=== PATIENT | female | born 1960 | race Caucasian/White ===

== ENCOUNTER 2016-11-04 13:17 | Emergency (ER) | payer OTHER ==
[~2016-11-04 13:17] MED LIST: AMLODIPINE BESY10 MG PO; CYCLOBENZAPRINE10 MG PO; DIAZEPAM10 MG PO; GABAPENTIN300 MG PO; LISINOPRIL10 MG PO; NORCO1 TAB PO
--- NOTE | 2016-11-04 13:54 | ED CLINICAL REPORT ---
Clinical Report - Physicians/Mid Levels [facility] [address] [place] [address] 11/04/2016 13:18 Patient: CAROLE CUNNINGHAM Time Seen: 13:48. Arrived- By private vehicle. Historian- patient. HISTORY OF PRESENT ILLNESS Chief Complaint: DENTAL PAIN. This started 2 days ago and is still present. Pain described as severe. No sore throat or mouth sores. She has had toothache. Similar symptoms previously: Recent medical care: The patient was seen recently in a clinic. REVIEW OF SYSTEMS No fever, difficulty breathing, nausea, diarrhea or headache. No skin rash, enlarged lymph nodes or vomiting. PAST HISTORY See nurses notes. Hypertension. Pt did not disclose her pain meds: 120 10/325 vicodin per month w/ Dr Benitez. SOCIAL HISTORY Smoker - current status unknown. History of drug use: marijuana. No alcohol use. ADDITIONAL NOTES The nursing notes have been reviewed. PHYSICAL EXAM Vital Signs: 11/04/2016 14:01 BP: 130/90. HR: 82. RR: 17. O2 saturation: 95%. Pain level now: 8/10. Have been reviewed and appear to be correct. Appearance: Alert. No acute distress. Head: Normal external inspection. Eyes: Pupils equal, round and reactive to light. Conjunctivae and eyelids normal. ENT: Moderate dental tenderness of a single tooth with gingival tenderness and swelling (upper left incisors). Nose normal. Pharynx normal. Lips normal. No trismus present. Uvula midline. Neck: Trachea midline. No adenopathy. Neck supple. No meningeal signs. CVS: Normal heart rate and rhythm. Respiratory: No respiratory distress. Skin: Normal skin color. No rash. Normal skin turgor. Neuro: Oriented X 3. PROGRESS AND PROCEDURES Course of Care: Dental resources discussed and resource sheet given I reminded pt that she needs to disclose her chronic narcotics when receiving care. Patient is stable. Patient counseled in person regarding the patient's condition and need for follow-up. Disposition: Discharged. CLINICAL IMPRESSION Periapical dental abscess. No sinus tract. INSTRUCTIONS Drink plenty of fluids. Follow a soft diet. (Call dentist LUZ ELENA. Let them know you are on antibiotics already [facility] dental: [phone]). Warnings: GENERAL WARNINGS: Return or contact your physician immediately if your condition worsens or changes unexpectedly, if not improving as expected, or if other problems arise. Your Current Medications: CONTINUE TAKING THE FOLLOWING MEDICATIONS: AmLODIPine Besylate Oral. Lisinopril Oral. Prescription Medications: Hydrocodone/APAP 10mg / 325mg: take 1 orally every day as needed. (dispense 1 tablet for bed tonight) Penicillin V 500 mg: take 1 tab orally every 8 hours for 10 days. Dispense thirty (30). No refills. Follow-up: Follow up with a specialist. Call for the next available appointment. Understanding of the discharge instructions verbalized by patient. (Electronically signed by Maura Le A.R.N.P. 11/04/2016 14:33)
--- NOTE | 2016-11-04 13:54 | ED NURSING NOTES ---
Clinical Report - Nurses [facility] [address] [place] [address] 11/04/2016 13:18 Patient: CAROLE CUNNINGHAM TRIAGE Triage time 13:Nov 04 2016. Chief Complaint: LEFT UPPER TOOTHACHE and (pt reports decayed tooth left upper , states "it's barely hanging in there and draining pus" x 2 days). Alert. No acute distress. SEPSIS SCREEN: Sepsis Screen: negative. Infection suspected/documented. --13:34 Naomi Juares R.N. 13:27 11/04/16. BP: 133/98 taken on the left arm. HR: 86. RR: 17. O2 saturation: 96%. Temp: 98.1 F. Pain level now: 01/24. --13:34 Naomi Juares R.N. Weight: 44.4 kg. Height/Length: 60 inches. BMI: 19.1. --13:30 Naomi Juares R.N. Medications Lisinopril Oral. --13:29 Naomi Juares R.N. AmLODIPine Besylate Oral. --13:29 Naomi Juares R.N. Medication/allergy information source: the patient. --13:34 Naomi Juares R.N. Allergies Oxycodone. --13:30 Naomi Juares R.N. The following entry was struck by Naomi Juares R.N., 13:30 (11/04/16) Reason - other(pt changed). <<STRICKEN ENTRY-- None. --13:29 Naomi Juares R.N. --END STRIKE>>. History Arrived by private vehicle. Historian: patient. Accompanied by family. Onset. (2 days ago). She has no dental appointment scheduled. She has had a toothache. 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 PAST MEDICAL HX: Immunizations: up-to-date. The patient is post-menopausal. SOCIAL HX: Smoker- current status unknown. History of drug use: marijuana. No alcohol use. No infectious disease exposure. ABUSE ASSESSMENT: No report of abuse. SELF HARM ASSESSMENT: A self harm assessment was performed. The patient answered "no" to the question "Do you have thoughts of harming or killing yourself?". FALL RISK ASSESSMENT: Fall risk assessment completed. No fall risk identified. NUTRITIONAL RISK ASSESSMENT: The nutritional risk assessment revealed no deficiencies. FUNCTIONAL ASSESSMENT: Functional assessment: no impairments noted. LEARNING NEEDS ASSESSMENT: The learning needs assessment revealed no barriers. SKIN INTEGRITY ASSESSMENT: Skin integrity risk assessment completed. No skin integrity risk identified. --13:34 Naomi Juares R.N. PROBLEMS: Weakness. Paresthesia. Lung Disease. Lung Cancer. Shoulder Injury. Sciatica. Hypertension. --13:30 Naomi Juares R.N. ADDITIONAL SURGERIES: Appendectomy. Back Surgery. Kidney stent. Lobectomy of lung. Lung Surgery. --13:30 Naomi Juares R.N. Interventions ID band on patient. To treatment room. --13:34 Naomi Juares R.N. PHYSICAL ASSESSMENT Ambulatory to room. GENERAL / NEURO / PSYCH: Alert. Oriented X 4. Appears in pain. HEENT: Pupils equal, round and reactive to light. Dental tenderness. Dental decay. RESPIRATORY: Respirations not labored. SKIN: Skin is warm and dry. Normal skin turgor. --13:35 Naomi Juares R.N. NURSING PROGRESS NOTES Reassurance given. Patient identifiers checked. Call light placed in reach. Side rails up x 1. Bed placed in lowest position. Brakes of bed on. Patient ready for evaluation- chart flagged. Patient waiting for evaluation. --13:35 Naomi Juares R.N. DISPOSITION / DISCHARGE Condition at departure: unchanged. No learning barriers present. Discharge instructions provided and reviewed with the patient. Reviewed medication(s) side effects, dosing and course information. Prescription(s) given to the patient. Reviewed soft diet and need for increased fluid intake (soft diet and push fluids per dc inst). Follow up contact number [facility]. Patient verbalized understanding. Written instructions provided in Cameroonian. The patient was discharged by the nurse practitioner. She was discharged home and accompanied by family. She left the Emergency Department ambulatory and via private vehicle. Patient driving. --14:03 Naomi Juraes R.N. 14:01 11/04/16. BP: 130/90. HR: 82. RR: 17. O2 saturation: 95%. Pain level now: 01/24. --14:03 Naomi Juares R.N. Locked/Released at 11/04/2016 14:04 by Naomi Juares R.N.
--- NOTE | 2016-11-04 13:54 | ED NURSING NOTES ---
Clinical Report - Nurses [facility] [address] [place] [address] 11/04/2016 13:18 Patient: CAROLE CUNNINGHAM TRIAGE Triage time 13:Nov 04 2016. Chief Complaint: LEFT UPPER TOOTHACHE and (pt reports decayed tooth left upper , states "it's barely hanging in there and draining pus" x 2 days). Alert. No acute distress. SEPSIS SCREEN: Sepsis Screen: negative. Infection suspected/documented. --13:34 Naomi Juares R.N. 13:27 11/04/16. BP: 133/98 taken on the left arm. HR: 86. RR: 17. O2 saturation: 96%. Temp: 98.1 F. Pain level now: 01/24. --13:34 Naomi Juares R.N. Weight: 44.4 kg. Height/Length: 60 inches. BMI: 19.1. --13:30 Naomi Juares R.N. Medications Lisinopril Oral. --13:29 Naomi Juares R.N. AmLODIPine Besylate Oral. --13:29 Naomi Juares R.N. Medication/allergy information source: the patient. --13:34 Naomi Juares R.N. Allergies Oxycodone. --13:30 Naomi Juares R.N. The following entry was struck by Naomi Juares R.N., 13:30 (11/04/16) Reason - other(pt changed). <<STRICKEN ENTRY-- None. --13:29 Naomi Juares R.N. --END STRIKE>>. History Arrived by private vehicle. Historian: patient. Accompanied by family. Onset. (2 days ago). She has no dental appointment scheduled. She has had a toothache. 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 PAST MEDICAL HX: Immunizations: up-to-date. The patient is post-menopausal. SOCIAL HX: Smoker- current status unknown. History of drug use: marijuana. No alcohol use. No infectious disease exposure. ABUSE ASSESSMENT: No report of abuse. SELF HARM ASSESSMENT: A self harm assessment was performed. The patient answered "no" to the question "Do you have thoughts of harming or killing yourself?". FALL RISK ASSESSMENT: Fall risk assessment completed. No fall risk identified. NUTRITIONAL RISK ASSESSMENT: The nutritional risk assessment revealed no deficiencies. FUNCTIONAL ASSESSMENT: Functional assessment: no impairments noted. LEARNING NEEDS ASSESSMENT: The learning needs assessment revealed no barriers. SKIN INTEGRITY ASSESSMENT: Skin integrity risk assessment completed. No skin integrity risk identified. --13:34 Naomi Juares R.N. PROBLEMS: Weakness. Paresthesia. Lung Disease. Lung Cancer. Shoulder Injury. Sciatica. Hypertension. --13:30 Naomi Juares R.N. ADDITIONAL SURGERIES: Appendectomy. Back Surgery. Kidney stent. Lobectomy of lung. Lung Surgery. --13:30 Naomi Juares R.N. Interventions ID band on patient. To treatment room. --13:34 Naomi Juares R.N. PHYSICAL ASSESSMENT Ambulatory to room. GENERAL / NEURO / PSYCH: Alert. Oriented X 4. Appears in pain. HEENT: Pupils equal, round and reactive to light. Dental tenderness. Dental decay. RESPIRATORY: Respirations not labored. SKIN: Skin is warm and dry. Normal skin turgor. --13:35 Naomi Juares R.N. NURSING PROGRESS NOTES Reassurance given. Patient identifiers checked. Call light placed in reach. Side rails up x 1. Bed placed in lowest position. Brakes of bed on. Patient ready for evaluation- chart flagged. Patient waiting for evaluation. --13:35 Naomi Juares R.N. DISPOSITION / DISCHARGE Condition at departure: unchanged. No learning barriers present. Discharge instructions provided and reviewed with the patient. Reviewed medication(s) side effects, dosing and course information. Prescription(s) given to the patient. Reviewed soft diet and need for increased fluid intake (soft diet and push fluids per dc inst). Follow up contact number [facility]. Patient verbalized understanding. Written instructions provided in Macanese. The patient was discharged by the nurse practitioner. She was discharged home and accompanied by family. She left the Emergency Department ambulatory and via private vehicle. Patient driving. --14:03 Naomi Juares R.N. 14:01 11/04/16. BP: 130/90. HR: 82. RR: 17. O2 saturation: 95%. Pain level now: 01/24. --14:03 Naomi Juares R.N. Locked/Released at 11/04/2016 14:04 by Naomi Juares R.N.
--- NOTE | 2016-11-04 13:54 | ED CLINICAL REPORT ---
Clinical Report - Physicians/Mid Levels [facility] [address] [place] [address] 11/04/2016 13:18 Patient: CAROLE CUNNINGHAM Time Seen: 13:48. Arrived- By private vehicle. Historian- patient. HISTORY OF PRESENT ILLNESS Chief Complaint: DENTAL PAIN. This started 2 days ago and is still present. Pain described as severe. No sore throat or mouth sores. She has had toothache. Similar symptoms previously: Recent medical care: The patient was seen recently in a clinic. REVIEW OF SYSTEMS No fever, difficulty breathing, nausea, diarrhea or headache. No skin rash, enlarged lymph nodes or vomiting. PAST HISTORY See nurses notes. Hypertension. Pt did not disclose her pain meds: 120 10/325 vicodin per month w/ Dr Benitez. SOCIAL HISTORY Smoker - current status unknown. History of drug use: marijuana. No alcohol use. ADDITIONAL NOTES The nursing notes have been reviewed. PHYSICAL EXAM Vital Signs: 11/04/2016 14:01 BP: 130/90. HR: 82. RR: 17. O2 saturation: 95%. Pain level now: 8/10. Have been reviewed and appear to be correct. Appearance: Alert. No acute distress. Head: Normal external inspection. Eyes: Pupils equal, round and reactive to light. Conjunctivae and eyelids normal. ENT: Moderate dental tenderness of a single tooth with gingival tenderness and swelling (upper left incisors). Nose normal. Pharynx normal. Lips normal. No trismus present. Uvula midline. Neck: Trachea midline. No adenopathy. Neck supple. No meningeal signs. CVS: Normal heart rate and rhythm. Respiratory: No respiratory distress. Skin: Normal skin color. No rash. Normal skin turgor. Neuro: Oriented X 3. PROGRESS AND PROCEDURES Course of Care: Dental resources discussed and resource sheet given I reminded pt that she needs to disclose her chronic narcotics when receiving care. Patient is stable. Patient counseled in person regarding the patient's condition and need for follow-up. Disposition: Discharged. CLINICAL IMPRESSION Periapical dental abscess. No sinus tract. INSTRUCTIONS Drink plenty of fluids. Follow a soft diet. (Call dentist LUZ ELENA. Let them know you are on antibiotics already [facility] dental: [phone]). Warnings: GENERAL WARNINGS: Return or contact your physician immediately if your condition worsens or changes unexpectedly, if not improving as expected, or if other problems arise. Your Current Medications: CONTINUE TAKING THE FOLLOWING MEDICATIONS: AmLODIPine Besylate Oral. Lisinopril Oral. Prescription Medications: Hydrocodone/APAP 10mg / 325mg: take 1 orally every day as needed. (dispense 1 tablet for bed tonight) Penicillin V 500 mg: take 1 tab orally every 8 hours for 10 days. Dispense thirty (30). No refills. Follow-up: Follow up with a specialist. Call for the next available appointment. Understanding of the discharge instructions verbalized by patient. (Electronically signed by Maura Le A.R.N.P. 11/04/2016 14:33)
--- NOTE | 2016-11-04 14:33 | ED DISCHARGE INSTRUCTIONS ---
Patient: CAROLE CUNNINGHAM General Instructions [facility] VisitID: [id number] [address] [place] [address] 56y, F Registration Date/Time: 11/04/2016 Periapical dental abscess. No sinus tract. INSTRUCTIONS Drink plenty of fluids. Follow a soft diet. (Call dentist LUZ ELENA. Let them know you are on antibiotics already [facility] dental: [phone]). Warnings: GENERAL WARNINGS: Return or contact your physician immediately if your condition worsens or changes unexpectedly, if not improving as expected, or if other problems arise. Your Current Medications: CONTINUE TAKING THE FOLLOWING MEDICATIONS: AmLODIPine Besylate Oral. Lisinopril Oral. Prescription Medications: Hydrocodone/APAP 10mg / 325mg: take 1 orally every day as needed. (dispense 1 tablet for bed tonight) Penicillin V 500 mg: take 1 tab orally every 8 hours for 10 days. Dispense thirty (30). No refills. Follow-up: Follow up with a specialist. Call for the next available appointment. Understanding of the discharge instructions verbalized by patient. ADDITIONAL INFORMATION Dental Abscess A dental abscess is an infection of the tooth socket. It often starts with a crack or cavity in the tooth. A pocket of pus forms between the tooth and the bone. The infection causes pain and swelling of the gum, cheek or jaw. The pain is often made worse by drinking hot or cold fluids, or biting on hard foods. Pain may be felt in the facial sinus or in the ear. A severe infection can interfere with swallowing and breathing. In the emergency department or clinic, you will be started on an antibiotic. However, final treatment requires drainage of the pus. This can be done by removing the tooth or performing a root canal. A root canal is done by an oral surgeon and involves drilling an opening in the tooth to drain the pus. After the infection has healed, a crown is placed over the tooth. Home care The following guidelines will help you care for your abscess at home: Avoid hot and cold foods and liquids since your tooth may be sensitive to temperature changes. If your tooth is chipped or cracked, or if there is a large open cavity, applyoil of cloves(available nkyl-fop-haormgn in drug stores) directly to the tooth to reduce pain. Some pharmacies carry an bydh-mfn-fpguljo "toothache kit". This contains oil of cloves and a paste, which can be applied over the exposed tooth to decrease sensitivity. Apply an ice pack (ice cubes in a plastic bag, wrapped in a towel) over the injured area for 20 minutes every 12 hours the first day for pain relief. Continue this 34 times a day until the pain and swelling goes away. You may use acetaminophen or ibuprofen to control pain, unless another medicine was prescribed. If you have chronic liver or kidney disease or ever had a stomach ulcer or GI bleeding, talk with your doctor before using these medicines. An antibiotic will be prescribed. Take it as directed until completed, even if you are feeling better sooner. Follow-up care Follow up as directed with a dentist or oral surgeon. Even though your pain may improve with the treatment given today, only a dentist or oral surgeon can provide full treatment for this problem. When to seek medical care Get prompt medical attention or contact your doctor if any of the following occur: Your face or eyelid becomes swollen or red Pain worsens or spreads to the neck Fever over 100.4F (38.0C) Unusual drowsiness; headache or stiff neck; weakness, or fainting Pus drains from the gum or tooth Difficulty talking, swallowing or breathing Unable to open your mouth wide You have been given the following additional information: Tooth Abscess (Electronically signed by Maura Le A.R.N.P. 11/04/2016 14:33)
--- NOTE | 2016-11-04 14:33 | ED MED RECONCILIATION SUMMARY ---
Patient: CAROLE CUNNINGHAM Medication Reconciliation Report [facility] VisitID: [id number] [address] [place] [address] 56y, F Registration Date/Time: 11/04/2016 Weight: 44.4 kg Height/Length: 60 in. BMI: 19.1 ALLERGIES: Oxycodone The patient's Home Medications are listed below: CONTINUE TAKING THE FOLLOWING MEDICATIONS: AmLODIPine Besylate Oral Lisinopril Oral The source(s) of the original Home Medication information: patient The following Medications were given to the patient in the Emergency Department: None. The following Medications were prescribed to the patient: Hydrocodone/APAP 10mg / 325mg: take 1 orally every day as needed.(dispense 1 tablet for bed tonight) -- Maura Le A.R.N.P. Penicillin V 500 mg: take 1 tab orally every 8 hours for 10 days. Dispense thirty (30). No refills. -- Maura Le A.R.N.P.
--- NOTE | 2016-11-04 14:33 | ED DISCHARGE INSTRUCTIONS ---
Patient: CAROLE CUNNINGHAM General Instructions [facility] VisitID: [id number] [address] [place] [address] 56y, F Registration Date/Time: 11/04/2016 Periapical dental abscess. No sinus tract. INSTRUCTIONS Drink plenty of fluids. Follow a soft diet. (Call dentist LUZ ELENA. Let them know you are on antibiotics already [facility] dental: [phone]). Warnings: GENERAL WARNINGS: Return or contact your physician immediately if your condition worsens or changes unexpectedly, if not improving as expected, or if other problems arise. Your Current Medications: CONTINUE TAKING THE FOLLOWING MEDICATIONS: AmLODIPine Besylate Oral. Lisinopril Oral. Prescription Medications: Hydrocodone/APAP 10mg / 325mg: take 1 orally every day as needed. (dispense 1 tablet for bed tonight) Penicillin V 500 mg: take 1 tab orally every 8 hours for 10 days. Dispense thirty (30). No refills. Follow-up: Follow up with a specialist. Call for the next available appointment. Understanding of the discharge instructions verbalized by patient. ADDITIONAL INFORMATION Dental Abscess A dental abscess is an infection of the tooth socket. It often starts with a crack or cavity in the tooth. A pocket of pus forms between the tooth and the bone. The infection causes pain and swelling of the gum, cheek or jaw. The pain is often made worse by drinking hot or cold fluids, or biting on hard foods. Pain may be felt in the facial sinus or in the ear. A severe infection can interfere with swallowing and breathing. In the emergency department or clinic, you will be started on an antibiotic. However, final treatment requires drainage of the pus. This can be done by removing the tooth or performing a root canal. A root canal is done by an oral surgeon and involves drilling an opening in the tooth to drain the pus. After the infection has healed, a crown is placed over the tooth. Home care The following guidelines will help you care for your abscess at home: Avoid hot and cold foods and liquids since your tooth may be sensitive to temperature changes. If your tooth is chipped or cracked, or if there is a large open cavity, applyoil of cloves(available kjjm-tsp-aeijmfb in drug stores) directly to the tooth to reduce pain. Some pharmacies carry an digl-jnb-qdbeksz "toothache kit". This contains oil of cloves and a paste, which can be applied over the exposed tooth to decrease sensitivity. Apply an ice pack (ice cubes in a plastic bag, wrapped in a towel) over the injured area for 20 minutes every 12 hours the first day for pain relief. Continue this 34 times a day until the pain and swelling goes away. You may use acetaminophen or ibuprofen to control pain, unless another medicine was prescribed. If you have chronic liver or kidney disease or ever had a stomach ulcer or GI bleeding, talk with your doctor before using these medicines. An antibiotic will be prescribed. Take it as directed until completed, even if you are feeling better sooner. Follow-up care Follow up as directed with a dentist or oral surgeon. Even though your pain may improve with the treatment given today, only a dentist or oral surgeon can provide full treatment for this problem. When to seek medical care Get prompt medical attention or contact your doctor if any of the following occur: Your face or eyelid becomes swollen or red Pain worsens or spreads to the neck Fever over 100.4F (38.0C) Unusual drowsiness; headache or stiff neck; weakness, or fainting Pus drains from the gum or tooth Difficulty talking, swallowing or breathing Unable to open your mouth wide You have been given the following additional information: Tooth Abscess (Electronically signed by Maura Le A.R.N.P. 11/04/2016 14:33)
--- NOTE | 2016-11-04 14:33 | ED MAR SUMMARY ---
..... Medication Administration Record [facility] [address] [place], [place] [id number] Patient: HUSAM CUNNINGHAMYCFam Meek Visit ID: [id number] 56y, F Weight: 44.4 kg Height/Length: 60 in BMI: 19.1 ALLERGIES: Oxycodone
--- NOTE | 2016-11-04 14:33 | ED MAR SUMMARY ---
..... Medication Administration Record [facility] [address] [place], [place] [id number] Patient: HUSAM CUNNINGHAMYCFam Meek Visit ID: [id number] 56y, F Weight: 44.4 kg Height/Length: 60 in BMI: 19.1 ALLERGIES: Oxycodone
--- NOTE | 2016-11-04 14:33 | ED MED RECONCILIATION SUMMARY ---
Patient: CAROLE CUNNINGHAM Medication Reconciliation Report VisitID: [id number] [address] [place] [address] 56y, F Registration Date/Time: 11/04/2016 Weight: 44.4 kg Height/Length: 60 in. BMI: 19.1 ALLERGIES: Oxycodone The patient's Home Medications are listed below: CONTINUE TAKING THE FOLLOWING MEDICATIONS: AmLODIPine Besylate Oral Lisinopril Oral The source(s) of the original Home Medication information: patient The following Medications were given to the patient in the Emergency Department: None. The following Medications were prescribed to the patient: Hydrocodone/APAP 10mg / 325mg: take 1 orally every day as needed.(dispense 1 tablet for bed tonight) -- Maura Le A.R.N.P. Penicillin V 500 mg: take 1 tab orally every 8 hours for 10 days. Dispense thirty (30). No refills. -- Maura Le A.R.N.P.
== END 2016-11-04 14:03 | disposition home or self-care (01) ==
LOC: ED SRH 13:17
DX: K04.7 Periapical abscess without sinus (principal); I10 Essential (primary) hypertension; Z79.899 Other long term (current) drug therapy; Z88.5 Allergy status to narcotic agent

== ENCOUNTER 2016-12-12 17:55 | Emergency (ER) | payer OTHER ==
--- NOTE | 2016-12-12 18:44 | ED CLINICAL REPORT ---
Clinical Report - Physicians/Mid Levels [facility] [address] [place] [address] 12/12/2016 17:57 Patient: CAROLE CUNNINGHAM Time Seen: 18:53 Fortunato 2016. Arrived- By private vehicle. Historian- patient. HISTORY OF PRESENT ILLNESS Chief Complaint: BACK PAIN. Onset- years and it is still present. It is described as being in the area of the lower lumbar spine. The quality is noted to be "pain" and similar to prior episodes. No bowel dysfunction or sensory loss. Additional history - Pt presents between pain specialist, awaiting for appointment on 31 of DECEMBER at [facility]. Patient presents today with the same pain she has had for many years. Out of medications today. Has follow-up for her chronic pain. Patient denies an injury. REVIEW OF SYSTEMS No fever, chills, difficulty with urination, hematuria or headache. No cough, abdominal pain, vomiting or diarrhea. All systems otherwise negative, except as recorded above. PAST HISTORY The patient has had prior back pain. Problems: Dental Abscess. Weakness. Paresthesia. Lung Disease. Lung Cancer. Shoulder Injury. Sciatica. Hypertension. Additional Surgeries: Appendectomy. Back Surgery. Kidney stent. Lobectomy of lung. Lung Surgery. Neck Surgery. Medications: Hydrocodone-Acetaminophen Oral. Gabapentin Oral. AmLODIPine Besylate Oral. Lisinopril Oral. Allergies: Oxycodone. SOCIAL HISTORY No drug use. Not an IV drug user. ADDITIONAL NOTES The nursing notes have been reviewed. PHYSICAL EXAM Vital Signs: 12/12/2016 18:17 BP: 119/89. HR: 100. RR: 24. O2 saturation: 97%. Temp: 98.1 F. Appearance: Alert. No apparent distress. HEENT: Normal external inspection. Neck: Normal inspection. Neck nontender. CVS: Heart sounds normal. Pulses normal. No decreased pulses. Respiratory: No respiratory distress. Abdomen: No visible injury. Soft. Back: Normal inspection. Vertebral point tenderness. Soft tissue tenderness. Skin: Skin warm. Normal skin color. Neuro: Oriented X 3. No sensory deficit. Straight leg raising: negative on the right and negative on the left. Reflex exam: right patellar 2+. PROGRESS AND PROCEDURES Course of Care: There are no risks for spinal epidural abscess or hematoma as patient is without any risk factors such as IVDA or evidence of active infection, no midline tenderness to percussion. Hence I do not feel emergent imaging with an MRI is indicated. However I did discuss with the patient that if these symptoms develop, or if the pain does not resolve an MRI may need to be done outpatient, or in the ED if symptoms worsen acutely or new onset of the above mentioned symptoms develop. Patient is stable. Symptoms better. Patient/family counseled. Disposition: Discharged. Condition: good. CLINICAL IMPRESSION Chronic lumbar back pain. INSTRUCTIONS (PLEASE FOLLOW UP WITH DR. VELA or the clinic about further medications). Prescription Medications: Hydrocodone/APAP 10mg / 325mg: take 1 orally every 12 hours as needed for pain. Dispense ten (10). No refill. (Electronically signed by Dayan Dorado P.A.-C 12/12/2016 18:59) Addenda for CAROLE CUNNINGHAM VisitID: [id number] Date: 12/12/2016 12/13/2016 10:23 Pt at [facility] pharmacy on [facility], were questioning whether to fill it since she just obtained 30 doses on the . Pt was honest with our PA about it, and only 10 tablets were prescribed so she can make it until the , her appt. Ok'd and also ok'd to pay martínez for it this time. Consulted with pt's nurse and Dr. Gutierrez. (Electronically signed by Kristi Patel R.N. - 12/13/2016 10:23) 01/02/2017 7:44 locked for processing (Electronically signed by Daksha Hannon R.N. - 01/02/2017 7:44)
--- NOTE | 2016-12-12 18:44 | ED NURSING NOTES ---
Clinical Report - Nurses [facility] [address] [place] [address] 12/12/2016 17:57 Patient: CAROLE CUNNINGHAM TRIAGE Triage time 1810. Acuity: LEVEL 5. Chief Complaint: (med refill opiates). Alert. No acute distress. (rapid speech). --18:24 Radha Avila 18:17 12/12/16. BP: 119/89. HR: 100. RR: 24. O2 saturation: 97%. Temp: 98.1 F. Pain level now 7/10. --18:24 Radha Avila. Weight: 41.7 kg. Height/Length: 60 inches. BMI: 18. --18:17 Radha Avila. Medications AmLODIPine Besylate Oral. Lisinopril Oral. --18:21 Radha Avila Gabapentin Oral. --18:21 Radha Avila Hydrocodone-Acetaminophen Oral. --18:21 Radha Avila. Medication/allergy information source: the patient. --18:24 Radha Avila. Allergies Oxycodone. --18:21 Radha Avila. History Arrived by private vehicle. Historian: patient. Unaccompanied. ( Pt here for more hydrocodone, sts he has been going to for pain meds, sts she doesn't like them and is switching to Prov, she sts she told her Provider that and so they only gave her 30 pills versus her 120 (to last 30 days), pt sts she has appt December 28 and is out of meds until then). 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 SOCIAL HX: Smoker- current status unknown (cigarette). History of drug use: marijuana. FALL RISK ASSESSMENT: Fall risk assessment completed. No fall risk identified. LEARNING NEEDS ASSESSMENT: The learning needs assessment revealed no barriers. SKIN INTEGRITY ASSESSMENT: Skin integrity risk assessment completed. No skin integrity risk identified. --18:24 Radha Avila. PROBLEMS: Dental Abscess. Weakness. Paresthesia. Lung Disease. Lung Cancer. Shoulder Injury. Sciatica. Hypertension. --18:22 Radha Avila. ADDITIONAL SURGERIES: Appendectomy. Back Surgery. Kidney stent. Lobectomy of lung. Lung Surgery. Neck Surgery. --18:22 Radha Avila. Interventions ID band on patient. To treatment room. --18:24 Radha Avila. PHYSICAL ASSESSMENT Ambulatory to room. GENERAL / NEURO / PSYCH: Alert. Oriented X 4. (rapid speech, poor historian, difficult intake of details). HEENT: Pupils equal, round and reactive to light. No facial asymmetry noted. Mucous membranes are pink. RESPIRATORY: Mild respiratory distress. The patient can speak in full sentences. Chest nontender. Decreased breath sounds. CVS: Normal sinus rhythm noted. Capillary refill less than 2 seconds. Pulses within normal limits. GI / : Abdomen soft and nontender and normal bowel sounds. SKIN: Skin intact. Skin is warm. --18:25 Radha Avila. NURSING PROGRESS NOTES Reassurance given. Bed placed in lowest position. Brakes of bed on. Patient ready for evaluation- chart flagged. --18:26 Radha Avila. DISPOSITION / DISCHARGE ( Patient discharged home at 1852 per scanned medical records discharge document). --07:44 Daksha Hannon R.N. Locked/Released at 01/02/2017 7:44 by Daksha Hannon R.N.
--- NOTE | 2016-12-12 18:44 | ED CLINICAL REPORT ---
Clinical Report - Physicians/Mid Levels [facility] [address] [place] [address] 12/12/2016 17:57 Patient: CAROLE CUNNINGHAM Time Seen: 18:53 Fortunato 2016. Arrived- By private vehicle. Historian- patient. HISTORY OF PRESENT ILLNESS Chief Complaint: BACK PAIN. Onset- years and it is still present. It is described as being in the area of the lower lumbar spine. The quality is noted to be "pain" and similar to prior episodes. No bowel dysfunction or sensory loss. Additional history - Pt presents between pain specialist, awaiting for appointment on 31 of DECEMBER at [facility]. Patient presents today with the same pain she has had for many years. Out of medications today. Has follow-up for her chronic pain. Patient denies an injury. REVIEW OF SYSTEMS No fever, chills, difficulty with urination, hematuria or headache. No cough, abdominal pain, vomiting or diarrhea. All systems otherwise negative, except as recorded above. PAST HISTORY The patient has had prior back pain. Problems: Dental Abscess. Weakness. Paresthesia. Lung Disease. Lung Cancer. Shoulder Injury. Sciatica. Hypertension. Additional Surgeries: Appendectomy. Back Surgery. Kidney stent. Lobectomy of lung. Lung Surgery. Neck Surgery. Medications: Hydrocodone-Acetaminophen Oral. Gabapentin Oral. AmLODIPine Besylate Oral. Lisinopril Oral. Allergies: Oxycodone. SOCIAL HISTORY No drug use. Not an IV drug user. ADDITIONAL NOTES The nursing notes have been reviewed. PHYSICAL EXAM Vital Signs: 12/12/2016 18:17 BP: 119/89. HR: 100. RR: 24. O2 saturation: 97%. Temp: 98.1 F. Appearance: Alert. No apparent distress. HEENT: Normal external inspection. Neck: Normal inspection. Neck nontender. CVS: Heart sounds normal. Pulses normal. No decreased pulses. Respiratory: No respiratory distress. Abdomen: No visible injury. Soft. Back: Normal inspection. Vertebral point tenderness. Soft tissue tenderness. Skin: Skin warm. Normal skin color. Neuro: Oriented X 3. No sensory deficit. Straight leg raising: negative on the right and negative on the left. Reflex exam: right patellar 2+. PROGRESS AND PROCEDURES Course of Care: There are no risks for spinal epidural abscess or hematoma as patient is without any risk factors such as IVDA or evidence of active infection, no midline tenderness to percussion. Hence I do not feel emergent imaging with an MRI is indicated. However I did discuss with the patient that if these symptoms develop, or if the pain does not resolve an MRI may need to be done outpatient, or in the ED if symptoms worsen acutely or new onset of the above mentioned symptoms develop. Patient is stable. Symptoms better. Patient/family counseled. Disposition: Discharged. Condition: good. CLINICAL IMPRESSION Chronic lumbar back pain. INSTRUCTIONS (PLEASE FOLLOW UP WITH DR. VELA or the clinic about further medications). Prescription Medications: Hydrocodone/APAP 10mg / 325mg: take 1 orally every 12 hours as needed for pain. Dispense ten (10). No refill. (Electronically signed by Dayan Droado P.A.-C 12/12/2016 18:59) Addenda for CAROLE CUNNINGHAM VisitID: [id number] Date: 12/12/2016 12/13/2016 10:23 Pt at [facility] pharmacy on [facility], were questioning whether to fill it since she just obtained 30 doses on the . Pt was honest with our PA about it, and only 10 tablets were prescribed so she can make it until the , her appt. Ok'd and also ok'd to pay martínez for it this time. Consulted with pt's nurse and Dr. Gutierrez. (Electronically signed by Kristi Patel R.N. - 12/13/2016 10:23) 01/02/2017 7:44 locked for processing (Electronically signed by Daksha Hannon R.N. - 01/02/2017 7:44)
--- NOTE | 2016-12-12 18:44 | ED NURSING NOTES ---
Clinical Report - Nurses [facility] [address] [place] [address] 12/12/2016 17:57 Patient: CAROLE CUNNINGHAM TRIAGE Triage time 1810. Acuity: LEVEL 5. Chief Complaint: (med refill opiates). Alert. No acute distress. (rapid speech). --18:24 Radha Avila 18:17 12/12/16. BP: 119/89. HR: 100. RR: 24. O2 saturation: 97%. Temp: 98.1 F. Pain level now 7/10. --18:24 Radha Avila. Weight: 41.7 kg. Height/Length: 60 inches. BMI: 18. --18:17 Radha Avila. Medications AmLODIPine Besylate Oral. Lisinopril Oral. --18:21 Radha Avila Gabapentin Oral. --18:21 Radha Avila Hydrocodone-Acetaminophen Oral. --18:21 Radha Avila. Medication/allergy information source: the patient. --18:24 Radha Avila. Allergies Oxycodone. --18:21 Radha Avila. History Arrived by private vehicle. Historian: patient. Unaccompanied. ( Pt here for more hydrocodone, sts he has been going to for pain meds, sts she doesn't like them and is switching to Prov, she sts she told her Provider that and so they only gave her 30 pills versus her 120 (to last 30 days), pt sts she has appt December 28 and is out of meds until then). 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 SOCIAL HX: Smoker- current status unknown (cigarette). History of drug use: marijuana. FALL RISK ASSESSMENT: Fall risk assessment completed. No fall risk identified. LEARNING NEEDS ASSESSMENT: The learning needs assessment revealed no barriers. SKIN INTEGRITY ASSESSMENT: Skin integrity risk assessment completed. No skin integrity risk identified. --18:24 Radha Avila. PROBLEMS: Dental Abscess. Weakness. Paresthesia. Lung Disease. Lung Cancer. Shoulder Injury. Sciatica. Hypertension. --18:22 Radha Avila. ADDITIONAL SURGERIES: Appendectomy. Back Surgery. Kidney stent. Lobectomy of lung. Lung Surgery. Neck Surgery. --18:22 Radha Avila. Interventions ID band on patient. To treatment room. --18:24 Radha Avila. PHYSICAL ASSESSMENT Ambulatory to room. GENERAL / NEURO / PSYCH: Alert. Oriented X 4. (rapid speech, poor historian, difficult intake of details). HEENT: Pupils equal, round and reactive to light. No facial asymmetry noted. Mucous membranes are pink. RESPIRATORY: Mild respiratory distress. The patient can speak in full sentences. Chest nontender. Decreased breath sounds. CVS: Normal sinus rhythm noted. Capillary refill less than 2 seconds. Pulses within normal limits. GI / : Abdomen soft and nontender and normal bowel sounds. SKIN: Skin intact. Skin is warm. --18:25 Radha Avila. NURSING PROGRESS NOTES Reassurance given. Bed placed in lowest position. Brakes of bed on. Patient ready for evaluation- chart flagged. --18:26 Radha Avila. DISPOSITION / DISCHARGE ( Patient discharged home at 1852 per scanned medical records discharge document). --07:44 Daksha Hannon R.N. Locked/Released at 01/02/2017 7:44 by Daksha Hannon R.N.
--- NOTE | 2017-01-02 07:45 | ED MAR SUMMARY ---
..... Medication Administration Record [facility] [address], [place] [id number] Patient: HUSAM CUNNINGHAMYCFam Meek Visit ID: [id number] 56y, F Weight: 41.7 kg Height/Length: 60 in BMI: 18 ALLERGIES: Oxycodone
--- NOTE | 2017-01-02 07:45 | ED MED RECONCILIATION SUMMARY ---
Patient: CAROLE CUNNINGHAM Medication Reconciliation Report [facility] VisitID: [id number] [address] [place] [address] 56y, F Registration Date/Time: 12/12/2016 Weight: 41.7 kg Height/Length: 60 in. BMI: 18.0 ALLERGIES: Oxycodone The patient's Home Medications are listed below: THE FOLLOWING MEDICATIONS NEED TO BE RECONCILED: AmLODIPine Besylate Oral Gabapentin Oral Hydrocodone-Acetaminophen Oral Lisinopril Oral The source(s) of the original Home Medication information: patient The following Medications were given to the patient in the Emergency Department: None. The following Medications were prescribed to the patient: Hydrocodone/APAP 10mg / 325mg: take 1 orally every 12 hours as needed for pain. Dispense ten (10). No refill. -- Dayan Dorado P.A.-C
--- NOTE | 2017-01-02 07:45 | ED MAR SUMMARY ---
..... Medication Administration Record [facility] [address] [place] [id number] Patient: HUSAM CUNNINGHAMYCFam Meek Visit ID: [id number] 56y, F Weight: 41.7 kg Height/Length: 60 in BMI: 18 ALLERGIES: Oxycodone
--- NOTE | 2017-01-02 07:45 | ED DISCHARGE INSTRUCTIONS ---
Patient: CAROLE CUNNINGHAM General Instructions [facility] VisitID: [id number] [address] [place] [address] 56y, F Registration Date/Time: 12/12/2016 Chronic lumbar back pain. INSTRUCTIONS (PLEASE FOLLOW UP WITH DR. VELA or the clinic about further medications). Prescription Medications: Hydrocodone/APAP 10mg / 325mg: take 1 orally every 12 hours as needed for pain. Dispense ten (10). No refill. ADDITIONAL INFORMATION Back Pain [Acute Or Chronic] Back pain is usually caused by an injury to the muscles or ligaments of the spine. Sometimes the disks that separate each bone in the spine may bulge and cause pain by pressing on a nearby nerve. Back pain may also appear after a sudden twisting/bending force (such as in a car accident), after a simple awkward movement, or lifting something heavy with poor body positioning. In either case, muscle spasm is often present and adds to the pain. Acute back pain usually gets better in one to two weeks. Back pain related to disk disease, arthritis in the spinal joints or spinal stenosis (narrowing of the spinal canal) can become chronic and last for months or years. Unless you had a physical injury (for example, a car accident or fall) X-rays are usually not ordered for the initial evaluation of back pain. If pain continues and does not respond to medical treatment, x-rays and other tests may be performed at a later time. Home Care: You may need to stay in bed the first few days. But, as soon as possible, begin sitting or walking to avoid problems with prolonged bed rest (muscle weakness, worsening back stiffness and pain, blood clots in the legs). When in bed, try to find a position of comfort. A firm mattress is best. Try lying flat on your back with pillows under your knees. You can also try lying on your side with your knees bent up towards your chest and a pillow between your knees. Avoid prolonged sitting. This puts more stress on the lower back than standing or walking. During the first two days after injury, apply an ICE PACK to the painful area for 20 minutes every 2-4 hours. This will reduce swelling and pain. HEAT (hot shower, hot bath or heating pad) works well for muscle spasm. You can start with ice, then switch to heat after two days. Some patients feel best alternating ice and heat treatments. Use the one method that feels the best to you. You may use acetaminophen (Tylenol) or ibuprofen (Motrin, Advil) to control pain, unless another pain medicine was prescribed. [NOTE: If you have chronic liver or kidney disease or ever had a stomach ulcer or GI bleeding, talk with your doctor before using these medicines.] Be aware of safe lifting methods and do not lift anything over 15 pounds until all the pain is gone. Follow Up with your doctor or this facility if your symptoms do not start to improve after one week. Physical therapy may be needed. [NOTE: If X-rays were taken, they will be reviewed by a radiologist. You will be notified of any new findings that may affect your care.] Get Prompt Medical Attention if any of the following occur: Pain becomes worse or spreads to your legs Weakness or numbness in one or both legs Loss of bowel or bladder control Numbness in the groin or genital area Hydrocodone Bitartrate, Acetaminophen Oral tablet What is this medicine? ACETAMINOPHEN; HYDROCODONE (a set a SUNDAY sarah fen; brandi droe KOE done) is a pain reliever. It is used to treat mild to moderate pain. How should I use this medicine? Take this medicine by mouth. Swallow it with a full glass of water. Follow the directions on the prescription label. If the medicine upsets your stomach, take the medicine with food or milk. Do not take more than you are told to take. Talk to your special education educational assistant regarding the use of this medicine in children. This medicine is not approved for use in children. What side effects may I notice from receiving this medicine? Side effects that you should report to your doctor or health floor care specialist as soon as possible: allergic reactions like skin rash, itching or hives, swelling of the face, lips, or tongue breathing problems confusion feeling faint or lightheaded, falls stomach pain yellowing of the eyes or skin Side effects that usually do not require medical attention (report to your doctor or health floor care specialist if they continue or are bothersome): nausea, vomiting stomach upset What may interact with this medicine? alcohol antihistamines isoniazid medicines for depression, anxiety, or psychotic disturbances medicines for sleep muscle relaxants naltrexone narcotic medicines (opiates) for pain phenobarbital ritonavir tramadol What if I miss a dose? If you miss a dose, take it as soon as you can. If it is almost time for your next dose, take only that dose. Do not take double or extra doses. Where should I keep my medicine? Keep out of the reach of children. This medicine can be abused. Keep your medicine in a safe place to protect it from theft. Do not share this medicine with anyone. Selling or giving away this medicine is dangerous and against the law. Store at room temperature between 15 and 30 degrees C (59 and 86 degrees F). Protect from light. Keep container tightly closed. Throw away any unused medicine after the expiration date. Discard unused medicine and used packaging carefully. Pets and children can be harmed if they find used or lost packages. What should I tell my health care provider before I take this medicine? They need to know if you have any of these conditions: brain tumor Crohn's disease, inflammatory bowel disease, or ulcerative colitis drink more than 3 alcohol-containing drinks per day drug abuse or addiction head injury heart or circulation problems kidney disease or problems going to the bathroom liver disease lung disease, asthma, or breathing problems an unusual or allergic reaction to acetaminophen, hydrocodone, other opioid analgesics, other medicines, foods, dyes, or preservatives or trying to get breast-feeding What should I watch for while using this medicine? Tell your doctor or health floor care specialist if your pain does not go away, if it gets worse, or if you have new or a different type of pain. You may develop tolerance to the medicine. Tolerance means that you will need a higher dose of the medicine for pain relief. Tolerance is normal and is expected if you take the medicine for a long time. Do not suddenly stop taking your medicine because you may develop a severe reaction. Your body becomes used to the medicine. This does NOT mean you are addicted. Addiction is a behavior related to getting and using a drug for a non-medical reason. If you have pain, you have a medical reason to take pain medicine. Your doctor will tell you how much medicine to take. If your doctor wants you to stop the medicine, the dose will be slowly lowered over time to avoid any side effects. You may get drowsy or dizzy when you first start taking the medicine or change doses. Do not drive, use machinery, or do anything that may be dangerous until you know how the medicine affects you. Stand or sit up slowly. There are different types of narcotic medicines (opiates) for pain. If you take more than one type at the same time, you may have more side effects. Give your health care provider a list of all medicines you use. Your doctor will tell you how much medicine to take. Do not take more medicine than directed. Call emergency for help if you have problems breathing. The medicine will cause constipation. Try to have a bowel movement at least every 2 to 3 days. If you do not have a bowel movement for 3 days, call your doctor or health floor care specialist. Too much acetaminophen can be very dangerous. Do not take Tylenol (acetaminophen) or medicines that contain acetaminophen with this medicine. Many non-prescription medicines contain acetaminophen. Always read the labels carefully. You have been given the following additional information: Back Pain (Acute Or Chronic) Hydrocodone Bitartrate, Acetaminophen Oral tablet (Electronically signed by Dayan Dorado P.A.-C 12/12/2016 18:59)
--- NOTE | 2017-01-02 07:45 | ED DISCHARGE INSTRUCTIONS ---
Patient: CAROLE CUNNINGHAM General Instructions [facility] VisitID: [id number] [address] [place] [address] 56y, F Registration Date/Time: 12/12/2016 Chronic lumbar back pain. INSTRUCTIONS (PLEASE FOLLOW UP WITH DR. VELA or the clinic about further medications). Prescription Medications: Hydrocodone/APAP 10mg / 325mg: take 1 orally every 12 hours as needed for pain. Dispense ten (10). No refill. ADDITIONAL INFORMATION Back Pain [Acute Or Chronic] Back pain is usually caused by an injury to the muscles or ligaments of the spine. Sometimes the disks that separate each bone in the spine may bulge and cause pain by pressing on a nearby nerve. Back pain may also appear after a sudden twisting/bending force (such as in a car accident), after a simple awkward movement, or lifting something heavy with poor body positioning. In either case, muscle spasm is often present and adds to the pain. Acute back pain usually gets better in one to two weeks. Back pain related to disk disease, arthritis in the spinal joints or spinal stenosis (narrowing of the spinal canal) can become chronic and last for months or years. Unless you had a physical injury (for example, a car accident or fall) X-rays are usually not ordered for the initial evaluation of back pain. If pain continues and does not respond to medical treatment, x-rays and other tests may be performed at a later time. Home Care: You may need to stay in bed the first few days. But, as soon as possible, begin sitting or walking to avoid problems with prolonged bed rest (muscle weakness, worsening back stiffness and pain, blood clots in the legs). When in bed, try to find a position of comfort. A firm mattress is best. Try lying flat on your back with pillows under your knees. You can also try lying on your side with your knees bent up towards your chest and a pillow between your knees. Avoid prolonged sitting. This puts more stress on the lower back than standing or walking. During the first two days after injury, apply an ICE PACK to the painful area for 20 minutes every 2-4 hours. This will reduce swelling and pain. HEAT (hot shower, hot bath or heating pad) works well for muscle spasm. You can start with ice, then switch to heat after two days. Some patients feel best alternating ice and heat treatments. Use the one method that feels the best to you. You may use acetaminophen (Tylenol) or ibuprofen (Motrin, Advil) to control pain, unless another pain medicine was prescribed. [NOTE: If you have chronic liver or kidney disease or ever had a stomach ulcer or GI bleeding, talk with your doctor before using these medicines.] Be aware of safe lifting methods and do not lift anything over 15 pounds until all the pain is gone. Follow Up with your doctor or this facility if your symptoms do not start to improve after one week. Physical therapy may be needed. [NOTE: If X-rays were taken, they will be reviewed by a radiologist. You will be notified of any new findings that may affect your care.] Get Prompt Medical Attention if any of the following occur: Pain becomes worse or spreads to your legs Weakness or numbness in one or both legs Loss of bowel or bladder control Numbness in the groin or genital area Hydrocodone Bitartrate, Acetaminophen Oral tablet What is this medicine? ACETAMINOPHEN; HYDROCODONE (a set a SUNDAY sarah fen; brandi droe KOE done) is a pain reliever. It is used to treat mild to moderate pain. How should I use this medicine? Take this medicine by mouth. Swallow it with a full glass of water. Follow the directions on the prescription label. If the medicine upsets your stomach, take the medicine with food or milk. Do not take more than you are told to take. Talk to your raspberry checker regarding the use of this medicine in children. This medicine is not approved for use in children. What side effects may I notice from receiving this medicine? Side effects that you should report to your doctor or health home care physical therapist as soon as possible: allergic reactions like skin rash, itching or hives, swelling of the face, lips, or tongue breathing problems confusion feeling faint or lightheaded, falls stomach pain yellowing of the eyes or skin Side effects that usually do not require medical attention (report to your doctor or health home care physical therapist if they continue or are bothersome): nausea, vomiting stomach upset What may interact with this medicine? alcohol antihistamines isoniazid medicines for depression, anxiety, or psychotic disturbances medicines for sleep muscle relaxants naltrexone narcotic medicines (opiates) for pain phenobarbital ritonavir tramadol What if I miss a dose? If you miss a dose, take it as soon as you can. If it is almost time for your next dose, take only that dose. Do not take double or extra doses. Where should I keep my medicine? Keep out of the reach of children. This medicine can be abused. Keep your medicine in a safe place to protect it from theft. Do not share this medicine with anyone. Selling or giving away this medicine is dangerous and against the law. Store at room temperature between 15 and 30 degrees C (59 and 86 degrees F). Protect from light. Keep container tightly closed. Throw away any unused medicine after the expiration date. Discard unused medicine and used packaging carefully. Pets and children can be harmed if they find used or lost packages. What should I tell my health care provider before I take this medicine? They need to know if you have any of these conditions: brain tumor Crohn's disease, inflammatory bowel disease, or ulcerative colitis drink more than 3 alcohol-containing drinks per day drug abuse or addiction head injury heart or circulation problems kidney disease or problems going to the bathroom liver disease lung disease, asthma, or breathing problems an unusual or allergic reaction to acetaminophen, hydrocodone, other opioid analgesics, other medicines, foods, dyes, or preservatives or trying to get breast-feeding What should I watch for while using this medicine? Tell your doctor or health home care physical therapist if your pain does not go away, if it gets worse, or if you have new or a different type of pain. You may develop tolerance to the medicine. Tolerance means that you will need a higher dose of the medicine for pain relief. Tolerance is normal and is expected if you take the medicine for a long time. Do not suddenly stop taking your medicine because you may develop a severe reaction. Your body becomes used to the medicine. This does NOT mean you are addicted. Addiction is a behavior related to getting and using a drug for a non-medical reason. If you have pain, you have a medical reason to take pain medicine. Your doctor will tell you how much medicine to take. If your doctor wants you to stop the medicine, the dose will be slowly lowered over time to avoid any side effects. You may get drowsy or dizzy when you first start taking the medicine or change doses. Do not drive, use machinery, or do anything that may be dangerous until you know how the medicine affects you. Stand or sit up slowly. There are different types of narcotic medicines (opiates) for pain. If you take more than one type at the same time, you may have more side effects. Give your health care provider a list of all medicines you use. Your doctor will tell you how much medicine to take. Do not take more medicine than directed. Call emergency for help if you have problems breathing. The medicine will cause constipation. Try to have a bowel movement at least every 2 to 3 days. If you do not have a bowel movement for 3 days, call your doctor or health home care physical therapist. Too much acetaminophen can be very dangerous. Do not take Tylenol (acetaminophen) or medicines that contain acetaminophen with this medicine. Many non-prescription medicines contain acetaminophen. Always read the labels carefully. You have been given the following additional information: Back Pain (Acute Or Chronic) Hydrocodone Bitartrate, Acetaminophen Oral tablet (Electronically signed by Dayan Dorado P.A.-C 12/12/2016 18:59)
--- NOTE | 2017-01-02 07:45 | ED MED RECONCILIATION SUMMARY ---
Patient: CAROLE CUNNINGHAM Medication Reconciliation Report [facility] VisitID: [id number] [address] [place] [address] 56y, F Registration Date/Time: 12/12/2016 Weight: 41.7 kg Height/Length: 60 in. BMI: 18.0 ALLERGIES: Oxycodone The patient's Home Medications are listed below: THE FOLLOWING MEDICATIONS NEED TO BE RECONCILED: AmLODIPine Besylate Oral Gabapentin Oral Hydrocodone-Acetaminophen Oral Lisinopril Oral The source(s) of the original Home Medication information: patient The following Medications were given to the patient in the Emergency Department: None. The following Medications were prescribed to the patient: Hydrocodone/APAP 10mg / 325mg: take 1 orally every 12 hours as needed for pain. Dispense ten (10). No refill. -- Dayan Dorado P.A.-C
== END 2016-12-12 18:52 | disposition home or self-care (01) ==
LOC: ED SRH 17:55
DX: G89.29 Other chronic pain (principal); M54.5 Low back pain; I10 Essential (primary) hypertension; Z79.891 Long term (current) use of opiate analgesic; Z79.899 Other long term (current) drug therapy; Z88.5 Allergy status to narcotic agent